=== PATIENT | male | born 1975 | race African-American/Black ===

== ENCOUNTER 2017-08-23 07:47 | Emergency (ER) | payer BC ==
[~2017-08-23] VITALS: Ht 177.8 cm; Wt 68.0 kg
[2017-08-23] MEDS ORDERED: KEPP500 PO (07:52)
[2017-08-23] MEDS ORDERED: SODIUM CHLORIDE 0.9% 1,000 ML IV ONE (08:03)
[2017-08-23 08:04] VITALS: BP 131/83
[2017-08-23] MEDS ORDERED: LORAZEPAM 2MG/ML CPJ IV ONE (08:15)
[2017-08-23] MEDS ORDERED: LEVETIRACETAM 500MG PREMIX 100 ML IV ONE (08:15)
[2017-08-23 08:22] LABS: BASOPHILS % 0.3 % (0.0-2.0); EOSINOPHILS % 0.4 % (0.0-5.0); HEMOGLOBIN. 14.9 g/dL (14.0-18.0); LYMPHOCYTES % 12.3 % (20.0-50.0); MEAN CORPUSCULAR VOLUME 86.2 fL (80.0-94.0); MEAN PLATELET VOLUME 8.4 fl (7.4-10.4); MONOCYTES % 6.3 % (2.0-8.0); NEUTROPHILS % 80.7 % (40.0-76.0); PLATELET 199 x1000/uL (130-400); RED BLOOD CELL COUNT 5.33 mill/uL (4.7-6.1); RED CELL DISTRIBUTION WIDTH 14.2 % (11.6-14.6)
[2017-08-23 08:30] LABS: AMMONIA < 25 uMol/L (<32)
[2017-08-23 08:38] LABS: CARBON DIOXIDE 21 mEq/L (21-32); CHLORIDE 104 mEq/L (98-107); ETHANOL BLOOD < 10 mg/dL; TROPONIN I < 0.02 ng/mL (0.00-0.04)
[2017-08-23 09:18] LABS: CLARITY URINE CLEAR (CLEAR); COLOR URINE YELLOW (YELLOW); GLUCOSE URINE NEGATIVE (NEGATIVE); KETONES URINE TRACE (NEGATIVE); LEUKOCYTE ESTERASE URINE TRACE (NEGATIVE); NITRITE URINE NEGATIVE (NEGATIVE); OCCULT BLOOD URINE TRACE (NEGATIVE); PROTEIN URINE 1+ (NEGATIVE); SPECIFIC GRAVITY URINE 1.019 (1.005-1.030); UROBILINOGEN URINE 0.2 E.U./dL (0.2-1.0)
[2017-08-23 09:44] LABS: *AMPHETAMINES SCREEN URINE NEGATIVE (NEGATIVE); *BARBITURATES SCREEN URINE NEGATIVE (NEGATIVE); *BENZODIAZEPINES SCREEN URINE NEGATIVE (NEGATIVE); *COCAINE SCREEN URINE NEGATIVE (NEGATIVE); CANNABINOID URINE SCREEN PRESUMTIVE POSITIVE (NEGATIVE); METHADONE URINE SCREEN NEGATIVE (NEGATIVE); OPIATES URINE SCREEN NEGATIVE (NEGATIVE); PHENCYCLIDINE URINE SCREEN NEGATIVE (NEGATIVE)
== END 2017-08-23 09:23 | disposition home or self-care (01) ==
LOC: ER 07:53
DX: G40.409 Other generalized epilepsy and epileptic syndromes, not intractable, without status epilepticus (principal); R51 Headache; R41.82 Altered mental status, unspecified; R73.9 Hyperglycemia, unspecified
CPT/HCPCS: 36415; 70450; 71010; 80053; 80305; 81001; 82140; 84484; 85025; 96365; 96375; 99285; G0482; J1953; J2060; J7030; Z7610; 96374